=== PATIENT | female | born 1985 | race Caucasian/White ===

== ENCOUNTER 2016-05-20 14:58 | Inpatient (IN) | payer BC ==
[~2016-05-20] VITALS: Ht 152.4 cm; Wt 74.4 kg
[2016-05-20] MEDS ORDERED: LR 500 ML IV ONE ×2 (15:48→20:54)
[2016-05-20] MEDS ORDERED: LR 1,000 ML IV SCH (15:48)
[2016-05-20] MEDS ORDERED: OXYTOCIN/NORMAL SALINE 1,000 ML IV SCH (15:48)
[2016-05-20] MEDS ORDERED: NALBUPHINE HCL 10 MG/ML AMP IM PRN (16:00)
[2016-05-20 16:29] LABS: BASOPHILS # (AUTO) 0.1 K/uL (0.0-0.2); BASOPHILS % (AUTO) 1.9 % (0.0-2.0); HEMATOCRIT 35.8 % (36-48); HEMOGLOBIN 12.3 g/dL (12.0-16.0); LYMPHOCYTES # (AUTO) 0.8 K/uL (1.0-5.5); LYMPHOCYTES % (AUTO) 9.8 % (20.5-51.5); MEAN CORPUSCULAR HEMOGLOBIN 34 pg (27-31); MEAN CORPUSCULAR HGB CONC 34 % (32-36); MEAN CORPUSCULAR VOLUME 99 fL (79.0-98.0); MONOCYTES # (AUTO) 0.4 K/uL (0.0-1.0); MONOCYTES % (AUTO) 5.2 % (1.7-9.3); NEUTROPHILS # (AUTO) 6.5 K/uL (1.8-7.7); NEUTROPHILS % (AUTO) 83.1 % (40.0-70.0); PLATELET COUNT (AUTO) 139 K/uL (130-430); RED BLOOD CELL COUNT(AUTO) 3.61 MIL/uL (4.2-6.2); RED CELL DISTRIBUTION WIDTH 12.8 % (9.0-15.0); WHITE BLOOD COUNT (AUTO) 7.8 K/uL (4.8-10.8)
[2016-05-20 18:24] VITALS: BP_SYST 116
[2016-05-20] MEDS ORDERED: fentaNYL CITRATE/PF 100 MCG/2 ML AMP ONE (19:51)
[2016-05-20] MEDS ORDERED: FENT2mCg/mL-ROPIVA0.2%/NS EPID 150 ML EP ONE (19:51)
[2016-05-20] MEDS ORDERED: MINERAL OIL 30 ML UDC PO ONE (20:00)
[2016-05-20] MEDS ORDERED: LIDOCAINE MPF 1% 50 MG/5 ML AMP INJ ONE (20:00)
[2016-05-20] MEDS ORDERED: ROPIVACAINE 40 MG/20 ML AMP EP ONE (20:00)
[2016-05-20] MEDS ORDERED: ePHEDrine sulfate 50 MG/ML VIAL IVP PRN (21:00)
[2016-05-20] MEDS ORDERED: fentaNYL CITRATE/PF 100 MCG/2 ML AMP EP ONE (21:00)
[2016-05-20] MEDS ORDERED: FENT2mCg/mL-ROPIVA0.2%/NS EPID 150 ML EP SCH (21:00)
[2016-05-21] MEDS ORDERED: OXYTOCIN/NORMAL SALINE 1,000 ML IV SCH (00:54)
[2016-05-21] MEDS ORDERED: OXYTOCIN/NORMAL SALINE 1,000 ML IV ONE ×2 (00:54→01:14)
[2016-05-21] MEDS ORDERED: HYDROCORTISONE 0.5%, 28.35 GM TOPICAL CREAM TP PRN (01:00)
[2016-05-21] MEDS ORDERED: SENNOSIDES/DOCUSATE SODIUM 1 TAB TABLET(SENOKOT-S) PO PRN (01:00)
[2016-05-21] MEDS ORDERED: LANOLIN 7 GM OINT. TP PRN (01:00)
[2016-05-21] MEDS ORDERED: ANUSOL 1 EA SUPP.RECT (PREPARATION H) RC PRN (01:00)
[2016-05-21] MEDS ORDERED: METHYLERGONOVINE MALEATE 0.2 MG TABLET PO PRN (01:00)
[2016-05-21] MEDS ORDERED: HYDROcodone/ACETAMIN 5-325 MG TAB (NORCO/ VICODIN) PO PRN (01:00)
[2016-05-21] MEDS ORDERED: GLYCERIN/WITCH HAZEL (TUCKS PADS) TP PRN (01:00)
[2016-05-21] MEDS ORDERED: MEASLES,MUMPS&RUBELLA VACC/PF 12500 UNIT/0.5 ML VIAL SUBQ PRN (01:00)
[2016-05-21] MEDS ORDERED: DERMOPLAST SPRAY TP PRN (01:00)
[2016-05-21] MEDS ORDERED: RHO(D) IMMUNE GLOBULIN/MALTOSE 1500 UNITS/1.3 ML (WINHRO) IM PRN (01:00)
[2016-05-21] MEDS ORDERED: OXYCODONE/ACETAMINOPHEN 5-325 TABLET PO PRN ×2 (01:00)
[2016-05-21] MEDS: IBUPROFEN 600 MG TABLET PO SCH ×3 (12:00→23:55)
[2016-05-21] MEDS ORDERED: TEMAZEPAM 15 MG CAPSULE PO PRN (21:00)
[2016-05-21] MEDS: DOCUSATE SODIUM 100 MG CAPSULE PO PRN ×2 (21:30→21:39)
[2016-05-22] MEDS: IBUPROFEN 600 MG TABLET PO SCH (06:00)
[2016-05-22 07:16] LABS: BASOPHILS % (AUTO) 0.3 % (0.0-2.0); EOSINOPHILS % (AUTO) 0.2 % (0.0-4.0); HEMOGLOBIN 11.7 g/dL (12.0-16.0); LYMPHOCYTES # (AUTO) 1.2 K/uL (1.0-5.5); LYMPHOCYTES % (AUTO) 12.7 % (20.5-51.5); MEAN CORPUSCULAR HEMOGLOBIN 34 pg (27-31); MEAN CORPUSCULAR HGB CONC 34 % (32-36); MEAN CORPUSCULAR VOLUME 100 fL (79.0-98.0); MONOCYTES # (AUTO) 0.6 K/uL (0.0-1.0); MONOCYTES % (AUTO) 6.1 % (1.7-9.3); NEUTROPHILS # (AUTO) 7.9 K/uL (1.8-7.7); NEUTROPHILS % (AUTO) 80.7 % (40.0-70.0); PLATELET COUNT (AUTO) 125 K/uL (130-430); RED BLOOD CELL COUNT(AUTO) 3.41 MIL/uL (4.2-6.2); WHITE BLOOD COUNT (AUTO) 9.7 K/uL (4.8-10.8)
== END 2016-05-22 12:10 | disposition home or self-care (01) | DRG 775 ==
LOC: SPU 14:58
PROVIDERS: ADMIT Specialist; ATTEND Specialist
PROC: 10E0XZZ Delivery of Products of Conception, External Approach (ICD-10-PCS; principal; 2016-05-20)
PROC: 3E0S3CZ (ICD-10-PCS; 2016-05-20)
PROC: 00HU33Z Insertion of Infusion Device into Spinal Canal, Percutaneous Approach (ICD-10-PCS; 2016-05-20)
PROC: 0HQ9XZZ Repair Perineum Skin, External Approach (ICD-10-PCS; 2016-05-20)
PROC: 30233S1 Transfusion of Nonautologous Globulin into Peripheral Vein, Percutaneous Approach (ICD-10-PCS; 2016-05-22)
DX: O99.214 Obesity complicating childbirth (principal); Z37.0 Single live birth; Z68.32 Body mass index [BMI] 32.0-32.9, adult; Z3A.40 40 weeks gestation of pregnancy; O70.0 First degree perineal laceration during delivery
CPT/HCPCS: 36415; 85025; 86592; 86870; 86886; 86900; 86901; J2001; J2590; J2790; J2795; J3010